=== PATIENT | male | born 1990 | race Caucasian/White ===

== ENCOUNTER 2021-12-05 21:24 | Emergency (ER) | payer OTHER, SELFPAY ==
--- NOTE | 2021-12-05 22:04 | ED.SKABFB ---
HPI - Skin/Abscess/Foreign Bdy General Chief complaint: Extremity Injury, Lower Stated complaint: insect bite right leg Time Seen by Provider: 12/05/21 22:05 Source: patient and RN notes reviewed Mode of arrival: ambulatory Limitations: no limitations History of Present Illness HPI narrative: patient was mowing 3-4 days ago when he noticed something stung him in his low posterior right calf. He said it just seems to itch but then it started to grow larger in size. He denies any fever chills. He has been putting some peroxide on it at home. complaint: insect bite/sting Onset (ago): day(s) (3) Location: RLE ( Posterior calf) Severity: moderate Quality: burning and aching Pain Consistency: constant Relieving factors: none Exacerbating factors: palpation Associated symptoms: denies other symptoms Treatments prior to arrival: other ( Iodine and peroxide) Related Data Home Medications Medication Instructions Recorded Confirmed No Home Medications 12/05/21 12/05/21 Allergies Allergy/AdvReac Type Severity Reaction Status Date / Time No Known Allergies Allergy Verified 12/05/21 22:05 Review of Systems Review of Systems: All systems reviewed & are unremarkable except as noted in HPI and below Constitutional: Constitutional: Denies chills and Denies fever(s) PMFSH Past Medical History Medical History (Updated 12/05/21 @ 22:24 by Osiel Castro MD) No active medical problems Surgical History Surgical History (Updated 12/05/21 @ 22:24 by Osiel Castro MD) No pertinent past surgical history Social History Social History (Updated 12/05/21 @ 22:24 by Osiel Castro MD) Substance use: current Substance use type: marijuana Other substance usage details: Occasional Exam Const: General: healthy appearing, no acute distress and alert Nutritional Appearance: well nourished Orientation/consciousness: patient oriented x3 Limitations: no limitations HENMT: Head: normal to inspection Ears: external ears normal Eyes: Conjunctivae: conjunctivae normal Pupils: Equal, round and reactive pupils present EOM: EOMs intact bilaterally Neck: Neck: normal visual inspection Resp: Effort & Inspection: normal respiratory effort Auscultation: clear to auscultation bilaterally Cardio: Rate: regular rate Rhythm: regular rhythm GI: Auscultation: normal bowel sounds Back/Spine/Pelvis: Cervical Spine: cervical ROM normal Thoracic/Lumbar Spine: thoraco-lumbar ROM normal Skin: General skin exam: normal color Lesions: lesion noted nodule right posterior leg size (5 cm with 2 cm central purple area), color blanching and violaceous, consistency soft and mobile and tender (very mild) Rashes: no rashes Neuro: General: patient oriented x3, moves all extremities, no focal motor deficits and CN's II-XI intact bilaterally Speech: normal speech Gait exam (Neuro): Normal gait present Extrem: General: normal to inspection and no clubbing, cyanosis or edema Psych: Mental Status: mental status grossly normal Affect: normal affect Attitude: cooperative Course Vital Signs Vital signs: Vital Signs Temperature 36.7 C 12/05/21 22:05 Pulse Rate 94 12/05/21 22:05 Respiratory Rate 18 12/05/21 22:05 Blood Pressure 175/95 H 12/05/21 22:05 Pulse Oximetry 98 12/05/21 22:05 Oxygen Delivery Room Air 12/05/21 22:05 Temperature 36.7 C 12/05/21 22:43 Pulse Rate 89 12/05/21 22:43 Respiratory Rate 19 12/05/21 22:43 Blood Pressure 169/103 H 12/05/21 22:43 Pulse Oximetry 95 12/05/21 22:43 Oxygen Delivery Room Air 12/05/21 22:43 Discharge Plan Discharge Clinical Impression: Insect sting Qualifiers: Encounter type: initial encounter Patient Disposition: Home, Self-Care Condition: Stable Instructions: Insect Bite or Sting (ED) Additional Instructions: use warm compresses 3-4 times per day. Tylenol and or Motrin as needed for pain. If the area worsens or bec
[2021-12-05 22:05] VITALS: BP 175/95; PULSE 94; RESP 18; TEMP 36.7; O2SAT 98
[2021-12-05 22:43] VITALS: BP 169/103; PULSE 89; RESP 19; TEMP 36.7; O2SAT 95
== END 2021-12-05 22:45 | disposition home or self-care (01) ==
PROVIDERS: Emergency Provider Emergency Medicine; PCP Nurse Practitioner Family
DX: T63.481A Toxic effect of venom of other arthropod, accidental (unintentional), initial encounter (principal)
CPT/HCPCS: 99281